=== PATIENT | male | born 1985 | race Two or more races ===

== ENCOUNTER 2017-03-06 02:49 | Emergency (ER) | payer OTHER ==
[~2017-03-06] VITALS: Ht 167.6 cm; Wt 71.0 kg
[2017-03-06] MEDS ORDERED: KETOROLAC 30MG/ML VIAL IM ONE (07:00)
[2017-03-06 07:19] LABS: CLARITY URINE CLEAR (CLEAR); COLOR URINE YELLOW (YELLOW); GLUCOSE URINE NEGATIVE (NEGATIVE); KETONES URINE NEGATIVE (NEGATIVE); LEUKOCYTE ESTERASE URINE NEGATIVE (NEGATIVE); NITRITE URINE NEGATIVE (NEGATIVE); OCCULT BLOOD URINE NEGATIVE (NEGATIVE); PROTEIN URINE NEGATIVE (NEGATIVE); SPECIFIC GRAVITY URINE 1.006 (1.005-1.030); UROBILINOGEN URINE 0.2 E.U./dL (0.2-1.0)
[2017-03-06 07:19] LABS: CHLORIDE 105 mEq/L (98-107)
[2017-03-06 07:29] LABS: CARBON DIOXIDE 32 mEq/L (21-32)
[2017-03-06 07:38] LABS: BASOPHILS % 0.3 % (0.0-2.0); EOSINOPHILS % 0.4 % (0.0-5.0); HEMATOCRIT. 42.7 % (42.0-52.0); HEMOGLOBIN. 14.3 g/dL (14.0-18.0); MEAN CORPUSCULAR HEMOGLOBIN 27.4 pg (28.0-32.0); MEAN CORPUSCULAR VOLUME 81.7 fL (80.0-94.0); MEAN PLATELET VOLUME 8.6 fl (7.4-10.4); MONOCYTES % 6.7 % (2.0-8.0); NEUTROPHILS % 70.6 % (40.0-76.0); PLATELET 237 x1000/uL (130-400); RED BLOOD CELL COUNT 5.23 mill/uL (4.7-6.1); RED CELL DISTRIBUTION WIDTH 14.3 % (11.6-14.6)
[2017-03-06 11:16] VITALS: BP 130/88
== END 2017-03-06 11:20 | disposition home or self-care (01) ==
LOC: ER 08:13
DX: R10.30 Lower abdominal pain, unspecified (principal); M54.5 Low back pain; K76.0 Fatty (change of) liver, not elsewhere classified; J98.11 Atelectasis; J84.10 Pulmonary fibrosis, unspecified; N62 Hypertrophy of breast
CPT/HCPCS: 36415; 74176; 80048; 81003; 85025; 96372; 99285; J1885